=== PATIENT | female | born 1945 | race Caucasian/White ===

== ENCOUNTER 2022-10-20 14:58 | Emergency (ER) | payer MEDICARE ==
[~2022-10-20 14:58] MED LIST: Iopamidol 370 76% 200 ML VIAL ONE; Sodium Chloride 0.9% 100 ML BAG ONE
[2022-10-20 15:46] LABS: #Basophils 0.1 thou/uL (0.0-0.2); #Eosinphils 0.4 thou/uL (0.0-0.7); #Lymphocytes 2.2 thou/uL (1.20-3.40); #Monocytes 0.7 thou/uL (0.11-0.59); #Neutrophils 4.8 thou/uL (1.40-6.50); %Basophils 1.7 % (0.0-1.0); %Eosinophils 5.1 % (0.0-10.0); %Lymphocytes 26.8 % (21.0-51.0); %Monocytes 8.6 % (0.0-10.0); %Neutrophils 57.8 % (42.0-75.0); Hematocrit 37.3 % (36.0-47.0); Hemoglobin 12.7 g/dL (12.0-16.0); Mean Corpuscular Hemoglobin 32.7 pg (27.0-31.0); Mean Corpuscular Volume 96.1 fl (78.0-98.0); Mean Platelet Volume 7.2 fL (7.4-10.4); Platelet Count 222 10x3/uL (130-400); RBC Distribution Width 11.6 % (11.5-14.5); Red Blood Cell (RBC) Count 3.88 mill/uL (4.20-5.40); White Blood Cell (WBC) Count 8.3 10x3/uL (4.8-10.8)
[2022-10-20 15:51] LABS: INR-International Normal Ratio 1.3; Prothrombin Time 16.9 sec (12.0-14.7)
[2022-10-20 15:52] LABS: PTT 33.5 sec (22.9-36.1)
[2022-10-20 15:58] LABS: ALT (SGPT) 27 U/L (8-55); AST (SGOT) 34 U/L (5-34); Albumin 4.1 g/dL (3.4-4.8); Alkaline Phosphatase 36 U/L (40-110); Anion Gap 18 mmol/L (10-20); BUN (Urea Nitrogen) 11 mg/dL (9.8-20.1); Bilirubin, Total 0.9 mg/dL (0.2-1.2); Calc. Creatinine Clearance 0 mL/min (70-130); Calcium 9.4 mg/dL (7.8-10.44); Carbon Dioxide 20 mmol/L (23-31); Chloride 105 mmol/L (98-107); Estimated GFR 54; Globulin 2.8 g/dL (2.4-3.5); Glucose 93 mg/dL (83-110); Potassium 3.8 mmol/L (3.5-5.1); Protein, Total 6.9 g/dL (5.8-8.1); Sodium 139 mmol/L (136-145)
[2022-10-20 15:59] LABS: Troponin I Less than 0.010 ng/mL (< 0.028)
[2022-10-20] MEDS ORDERED: Aspirin Chewable 81 MG TAB ONE (16:33)
[2022-10-20] MEDS ORDERED: levETIRAcetam 500 MG/5 ML VIAL ONE (16:33)
[2022-10-20 17:14] LABS: Bilirubin Negative (Negative); Blood, Urine Negative (Negative); Glucose, Urine (Dipstick) Negative (Negative); Ketone, Urine Trace mg/dL (Negative); Leukocyte Trace (Negative); Nitrite Negative (Negative); Protein, Urine (Dipstick) Negative (Neg-Trace); Urobilinogen 0.2 mg/dL (Less than 2); pH, Urine 5.5 (5.0-9.0)
[2022-10-20 17:22] LABS: Clarity Hazy (Clear)
[2022-10-20 17:23] LABS: Bacteria/HPF 1+ HPF (None Seen); CAUTI Indications for Culture Alt mental st,lethar; RBC/HPF 0-3 HPF (0-3); Squamous Epithelial 0-3 HPF (0-3); Urine Culture Reflex No No
== END 2022-10-20 19:10 | disposition short-term general hospital (02) ==
LOC: MADERS 14:58
DX: R47.01 Aphasia (principal); I10 Essential (primary) hypertension; E78.00 Pure hypercholesterolemia, unspecified; E03.9 Hypothyroidism, unspecified; Z79.899 Other long term (current) drug therapy
CPT/HCPCS: 0042T; 70450; 71045; 80053; 81001; 84484; 85025; 85610; 85730; 93005; 94760; J1953; 36415; 96365; J3490